=== PATIENT | female | born 1965 | race Caucasian/White ===

== ENCOUNTER 2020-05-26 20:59 | Inpatient (IN) | payer OTHER ==
[~2020-05-26] VITALS: Ht 170.2 cm; Wt 68.5 kg
--- NOTE | 2020-05-26 21:10 | NUR ---
BIB [facility] transported from [facility]. Patient was placed on 5150 hold for GD by police prior to arrival.
--- NOTE | 2020-05-26 21:23 | NUR ---
assistant professor surgical technology in room with patient to take x-rays.
--- NOTE | 2020-05-26 21:30 | NUR ---
Called for room, patient has been assigned room 137B in [facility].
[2020-05-26] MEDS ORDERED: ALPR0.255 PO (21:31)
[2020-05-26] MEDS ORDERED: HYDR-3972 PO (21:31)
--- NOTE | 2020-05-26 21:45 | NUR ---
Shalom beckfordyulia in ED - 05/26/20 at 2147 by CHEVY Patient is resting on bed, eyes closed. No acute distress is noted at this time.
--- NOTE | 2020-05-26 21:45 | NUR ---
Patient is resting on bed, rambling tangentially to herself.
--- NOTE | 2020-05-26 21:50 | NUR ---
Called [facility] to give report; pending call back.
--- NOTE | 2020-05-26 22:35 | NUR ---
Called [facility] to follow up on status to give report, EXECUTIVE ASSISTANT TO PRESIDENT states the nurses are busy and will call back.
--- NOTE | 2020-05-26 22:45 | NUR ---
KYLE Austin called back, report was given to her. Patient will be going to U room 137-B.
--- NOTE | 2020-05-26 23:20 | NUR ---
Pt. admitted to [facility] 137-B, under care of Dr. Penaloza. Belongs List completed, transported with original paperwork.
[2020-05-27] MEDS ORDERED: MAGNESIUM HYDROXIDE 30 ML LIQUID UDC PO PRN (00:15)
[2020-05-27] MEDS ORDERED: MAG HYDROX/AL HYDROX/SIMETH 30 ML LIQUID UDC PO PRN (00:15)
[2020-05-27] MEDS ORDERED: BLOOD SUGAR DIAGNOSTIC 1 EACH STRIP VI ONE (00:15)
[2020-05-27] MEDS: ACETAMINOPHEN 325 MG TABLET PO PRN ×2 (00:45→16:14)
[2020-05-27] MEDS: LORAZEPAM 0.5 MG TABLET PO PRN ×2 (00:46→00:49)
--- NOTE | 2020-05-27 03:12 | NUR ---
ADMITTED A FEMALE AT 23:15 ON 5150 HOLD FOR GRAVELLY DISABLED.DR. CIFUENTES IS THE PSYCHIATRIST AND DR KIRK IS THE SELF RISING FLOUR MIXER. PER HOLD SHE WAS SAID TO HAVE ATTEMPTED TO BREAK INTO 2 UNITS OF HER NEIGHBORS AND WAS INCOMPREHENSIBLE IN PRESENTATION. SHE ALSO ONCE FLOODED HER PLACE WHICH WENT INTO THE NEXT APARTMENT. ON FACE TO FACE ASSESSMENT SHE KEPT RAMBLING,PRESSURED SPEECH, UNABLE TO STAY ON ONE TOPIC AND HAVING TANGENTIAL THOUGHT.S. SHE SAID SHE WAS , HAD A BABY AT HOME, NEEDED TO PRAY AND TALKED NON STOP. BODY ASSESSMENT. SHE HAD ONE BRUISE ON INNER ARM OF RIGHT HAND. SHE REFUSED ALL MEDS EXCEPT TYLENOL. SHOWN TO HER ROOM BUT SAID SHE NEEDED A PRIVATE ONE BECAUSE EVERYONE HERE WAS COUGHING OR SNORING. HANDBOOK GIVEN. SAFETY MEASURES PUT IN PLACE . WILL CONTINUE TO MONITOR. verbal.[id number]
[2020-05-27 07:30] VITALS: BP 141/88
--- NOTE | 2020-05-27 09:06 | NUR ---
UR Note: Auth# [id number]. 3 days approved from 05-26-20 - 05-28-20 and clinical review due 05-28-20. Nigel/W Ernestine Everett ([phone]) with [facility].
--- NOTE | 2020-05-27 09:07 | NUR ---
Firearms Report: Gear Hobber Operator completed and submitted a [employer] firearms report for 5150 grave disability certification. A copy of report has been placed in patient chart.
[2020-05-27] MEDS: OLANZAPINE 5 MG TABLET PO SCH ×2 (09:15→16:20)
[2020-05-27] MEDS: DIVALPROEX 250 MG TABLET.DR PO SCH ×3 (09:15→16:20)
--- NOTE | 2020-05-27 10:01 | NUR ---
Initial Discharge Plan: Patient currently resides at [address] [place] [address]; ([phone]). Patient would want to return home upon discharge. This SW contacted patient's mother Carolina ([phone]) to gather collateral and discuss treatment plan. However, Carolina was unavailable. This SW will work with the MD, treatment team, and family to help coordinate proper discharge.
--- NOTE | 2020-05-27 10:26 | NUR ---
SW Family Contact: This SW contacted patient's mother Carolina ([phone]) to gather collateral and discuss treatment plan. However, Carolina was unavailable.
--- NOTE | 2020-05-27 13:01 | NUR ---
GPS: Nursing Notes: Thought Disorder: Patient is awake and responding to her name, impaired judgment, disorganized thoughts, flight of ideas, A/Ox2, loud and pressured speech, hyperverbal, non-stop talking, episodes of shouting at times, poor impulse control, gets easily irritable when redirected, refusing her psych medications, continue with racing thoughts, loud and angry affect, constantly redirected during shift, unable to formulate a viable plan for self care, compliant with her shower, but continue to be hyperverbal while showering, continue to monitor for safety, continue with treatment plan.
[2020-05-27 15:01] VITALS: BP 158/97
[2020-05-27 20:15] VITALS: BP 161/98
[2020-05-27] MEDS ORDERED: OLANZAPINE 10 MG VIAL IM ONE (21:00)
[2020-05-27] MEDS ORDERED: LORAZEPAM 2 MG/1 ML VIAL IV ONE (21:00)
--- NOTE | 2020-05-27 21:00 | NUR ---
GPS: Pt.is verbally agitated,hyperverbal,talking non-stop and non-sensical. Agitated when being re-directed. Refused to take PO med.for anxiety. Behavior is escalating and threatening to harm staff when approached and when being re-directed. Arguing and threatening her room mate at this time. Dr. Cortes made aware with orders. Safe environment provided.
--- NOTE | 2020-05-27 21:40 | NUR ---
GPS: Zyprexa 10mg + Ativan 1mg given IM and asiya.well. Continues re-direction provided by staff. Safe environment provided.
--- NOTE | 2020-05-28 01:03 | NUR ---
GPS: Asleep upon rounds. In no acute resp.distress noted. Safe environment provided.
[2020-05-28 07:30] VITALS: BP 141/90
[2020-05-28 08:22] LABS: BILIRUBIN,TOTAL 0.1 mg/dL (0.2-1.0); CREATININE 0.8 mg/dL (0.6-1.3); POTASSIUM 3.9 mmol/L (3.5-5.1)
--- NOTE | 2020-05-28 08:56 | NUR ---
SW Family Contact: This SW contacted patient's mother Carolina ([phone]) who lives in [place]. This SW attempted to contact mother multiple times. This SW left a voicemail that we are in different time zones.
[2020-05-28] MEDS: DIVALPROEX 250 MG TABLET.DR PO SCH ×3 (09:00→17:00)
[2020-05-28] MEDS: OLANZAPINE 5 MG TABLET PO SCH ×2 (09:00→17:00)
--- NOTE | 2020-05-28 09:21 | NUR ---
SW Family Contact: This SW received a call from patient's mother Carolina ([phone]) who stated that she is currently residing at [place] and is traveling. She reported that she is the DPOA but is unable to send documents because she is traveling. Carolina expressed upon discharge she would want patient back home and stated that a family member will pick her up upon discharge.
--- NOTE | 2020-05-28 09:36 | NUR ---
UR Note: Auth# [id number]. This SW contacted patients case management specialist from [employer] ([phone]) ext [phone] and left a voicemail in regards to patient's clinical review and requested days.
--- NOTE | 2020-05-28 10:25 | NUR ---
UR Note: Auth# [id number]. This SW contacted patients rn case management from [employer] ([phone]) ext [phone] who stated she will authorize until 06/02/2020Tuesday and will require clinical review on 06/02/2020.
--- NOTE | 2020-05-28 14:24 | NUR ---
Individual Therapy: family preservation caseworker met with patient for brief counseling and assessed for patient's presenting problem disorganized thought content. Patient appeared manic and labile. Patient was talking non stop. This SW was unable to re-direct patient. SW unable to conduct therapy at this time.
[2020-05-28] MEDS: ACETAMINOPHEN 325 MG TABLET PO PRN (15:18)
[2020-05-28 16:00] VITALS: BP 145/95
[2020-05-28] MEDS ORDERED: LORAZEPAM 2 MG/1 ML VIAL IM ONE (18:45)
[2020-05-28] MEDS ORDERED: OLANZAPINE 10 MG VIAL IM ONE (18:45)
[2020-05-28 20:11] VITALS: BP 125/77
[2020-05-28] MEDS: TEMAZEPAM 7.5 MG CAPSULE PO PRN (22:40)
[2020-05-29 07:30] VITALS: BP 132/86
--- NOTE | 2020-05-29 08:32 | NUR ---
Gps/Anthropological Linguist- Patient constantly talking, hyperverbal, difficulty redirecting patient,, rfusing routine oral meds, refusing prn ativan o.5 po. " will throw it up in you face" per pt.
[2020-05-29] MEDS: OLANZAPINE 5 MG TABLET PO SCH ×2 (09:00→16:41)
[2020-05-29] MEDS: DIVALPROEX 250 MG TABLET.DR PO SCH ×3 (09:00→16:41)
[2020-05-29 16:00] VITALS: BP 131/72
--- NOTE | 2020-05-29 16:17 | NUR ---
Gps/Natural Gas Inspector- Patient claimed she has her period right now, she is having menopause , no bleeding noted , patient claimed she washed her underwear with cold running water, and blood stain disappeared. Kept coming to the the Nurses station asking for more lori-pads. Remains to refused routine medications as prescribed by Psychiatrist, claimed she does not need i. reviewed meds. patient does not want to listen.
[2020-05-29] MEDS: ACETAMINOPHEN 325 MG TABLET PO PRN (19:09)
[2020-05-29 20:21] VITALS: BP 118/69
[2020-05-29] MEDS: TEMAZEPAM 7.5 MG CAPSULE PO PRN (21:17)
--- NOTE | 2020-05-30 01:45 | NUR ---
patient noted hyperverbal, flight of ideas. she required multiple redirection reassurance. Ativan 0.5 mg po prn was offered but she refused. will continue to monitor.
[2020-05-30 07:30] VITALS: BP 127/73
--- NOTE | 2020-05-30 08:21 | NUR ---
UR Note: This LUISA faxed to onsite case manager Jeanette (F:[phone]) and contacted her (P:[phone]) and stated that clinicals have been sent to onsite case manager Kae See ([phone]) ext [phone] who stated she will authorize until 06/02/2020Tuesday and will require clinical review on 06/02/2020. This SW left a detailed voicemail to Jeanette and stated who will be the appropriate assigned onsite case manager. Addendum: 05/30/20 at 0925 by LUISA CHAN [facility]# [id number]
[2020-05-30] MEDS: OLANZAPINE 5 MG TABLET PO SCH ×3 (08:26→20:23)
[2020-05-30] MEDS: DIVALPROEX 250 MG TABLET.DR PO SCH ×3 (08:26→17:00)
--- NOTE | 2020-05-30 09:27 | NUR ---
UR Note Contact: This SW received a call from Jeanette (F:[phone]) (P:[phone]) who stated that she is a pillowcase sewer for medical admission. emergency service worker informed that patient is the behavioral unit. She expressed to continue working with the behavioral pillowcase sewer and she will be closing this case.
[2020-05-30] MEDS: OLANZAPINE 10 MG VIAL IM PRN ×2 (14:31→20:36)
--- NOTE | 2020-05-30 15:40 | NUR ---
Court Hearing: Patient's court hearing was today and it was upheld for GD.
[2020-05-30 17:02] VITALS: BP 159/89
[2020-05-30 19:58] VITALS: BP 125/79
[2020-05-30] MEDS: TEMAZEPAM 7.5 MG CAPSULE PO PRN (23:28)
[2020-05-30] MEDS: ACETAMINOPHEN 325 MG TABLET PO PRN (23:31)
--- NOTE | 2020-05-31 06:31 | NUR ---
GPS: Pt.slept for only 2.30 last night despite receiving Restoril 7.5mg for insomnia. Remains loud,hyperverbal,pressured speech and needing frequent re-direction from staff. Poor insight to present situation. Safe environment provided. Will continue to monitor.
[2020-05-31 07:30] VITALS: BP 154/77
[2020-05-31] MEDS: DIVALPROEX 250 MG TABLET.DR PO SCH ×3 (08:40→17:00)
[2020-05-31] MEDS: OLANZAPINE 5 MG TABLET PO SCH ×2 (08:41→20:58)
[2020-05-31] MEDS: OLANZAPINE 10 MG VIAL IM PRN ×2 (08:41→21:03)
--- NOTE | 2020-05-31 08:53 | NUR ---
Gps/Dental Laboratory Worker- Reviewed medications, refused to take po. meds. calimed she is allecrgic to lots of meds. and will not take any, only "Xanax" per pt. Informed she will receive Zyprexa 10 mg IM if refused . Hyperverbal, loud difficulty redirecting patient, calling staff names.
[2020-05-31 15:18] VITALS: BP 120/81
--- NOTE | 2020-05-31 16:14 | NUR ---
Gps/Asset Protection Professional- Had been in and out of her room loud, hyperverbal, needing constant redirections, , speech incoherent and kept repeating her words , when tries to redirect patient , the more she talks louder.. Remains to refused po. meds.
[2020-05-31 20:00] VITALS: BP 102/54
[2020-05-31] MEDS: ACETAMINOPHEN 325 MG TABLET PO PRN (21:23)
[2020-05-31] MEDS: TEMAZEPAM 7.5 MG CAPSULE PO PRN (21:24)
--- NOTE | 2020-06-01 05:28 | NUR ---
PAtient continue to refused routine zyprexa p.o .Risk and benefits explained 3x.Still refused.Patient noted Delusional hyperverbal .Claimed shes on her period and wants pads.Upon assessment no blood noted. Patient on reise.Zypreza IM given. Patient continues to be hyperverbal ,loud ,has flight of ideas.Easily gets agitated.Offered ativan .Patient took and spit it.Wasted medication.
--- NOTE | 2020-06-01 06:35 | NUR ---
Patient slept 2.45 .Remains hyperverbal and Loud.Continues to have flight of ideas. Patient noted pacing back and forth in the hallway this morning.Constant redirection provided by the staff.Continue safety measures.
[2020-06-01 07:30] VITALS: BP 133/80
[2020-06-01] MEDS: DIVALPROEX 250 MG TABLET.DR PO SCH ×3 (08:44→17:00)
[2020-06-01] MEDS: OLANZAPINE 5 MG TABLET PO SCH ×2 (08:44→20:03)
[2020-06-01] MEDS: OLANZAPINE 10 MG VIAL IM PRN (08:45)
--- NOTE | 2020-06-01 08:51 | NUR ---
Gps/Rn Perioperative- Came out rushing to Nurses station, claimed fire alarm going off, someone is smoking , in fact it was the bed alarm. Talking loud, hyperverbal, staff difficulty redirecting patient, kept coming to the Nurses station uttering louddly ., constantly needing redirections.
[2020-06-01 09:13] VITALS: BP 133/80
--- NOTE | 2020-06-01 11:30 | NUR ---
Gps/Refueling Rampman- Had shower, assisted by FACTORY WORKER, yelling and screaming episodes coming from the shower room, patient was uncooperative with the FACTORY WORKER, , yelling at the staff, difficulty redirecting patient.
[2020-06-01] MEDS: ACETAMINOPHEN 325 MG TABLET PO PRN (15:24)
--- NOTE | 2020-06-01 15:24 | NUR ---
Gps/Director Of Product Management- Complained of headache, requesting tylenol 650 mg. po, , claimed she thinks she is allergic to it, but she takes it anytime , because it helps her H/A. Constant redirections given to patient.
[2020-06-01 16:00] VITALS: BP 100/57
[2020-06-01 20:00] VITALS: BP 129/75
[2020-06-01] MEDS: TEMAZEPAM 15 MG CAPSULE PO PRN (22:10)
--- NOTE | 2020-06-02 06:31 | NUR ---
GPS: Pt.slept for 5.15 last night. Denies pain. Re-directed and re-assured prn. Safe environment provided.
[2020-06-02 07:30] VITALS: BP 131/71
[2020-06-02] MEDS: DIVALPROEX 250 MG TABLET.DR PO SCH ×3 (08:51→16:28)
[2020-06-02] MEDS: OLANZAPINE 5 MG TABLET PO SCH (08:51)
--- NOTE | 2020-06-02 09:16 | NUR ---
UR Note: Auth# [id number]. This SW contacted patients case planner from [employer] ([phone]) ext [phone] and left a voicemail for patient's clinical review today 06/02 requesting authorization.
--- NOTE | 2020-06-02 12:53 | NUR ---
UR Note: Auth# [id number]. This SW contacted patients adult protective caseworker from [employer] ([phone]) ext [phone] and authorized until 06/04. Will require a review on 06/04.
[2020-06-02] MEDS: ACETAMINOPHEN 325 MG TABLET PO PRN ×2 (14:40→22:45)
[2020-06-02 15:02] VITALS: BP 116/70
--- NOTE | 2020-06-02 15:19 | NUR ---
SW Family Contact: This SW received a call from patient's mother Carolina ([phone]) who left a voicemail stating that "someone left a text message". This SW expressed that the hospital has not left a text message.
--- NOTE | 2020-06-02 15:32 | NUR ---
Individual Therapy: home support worker met with patient for brief counseling and assessed for patient's presenting problem disorganized thought content. Patient appeared manic and labile. Patient was talking non stop. Patient was unable to focus with this SW. Patient unable to have a proper conversation at this time due to manic mood.
[2020-06-02] MEDS: BENZTROPINE MESYLATE 0.5 MG TABLET PO SCH (16:51)
[2020-06-02 20:16] VITALS: BP 154/76
[2020-06-02] MEDS: HALOPERIDOL 5 MG TABLET PO SCH (21:00)
[2020-06-02] MEDS: HALOPERIDOL LACTATE 5 MG/1 ML VIAL IM PRN (21:03)
--- NOTE | 2020-06-02 22:00 | NUR ---
RECEIVED PATIENT IN THE HALLWAY. SHE IS NOTED A/O X 3 ABLE TO VERBALIZED FEELINGS. SHE PRESENTS HYPERVERBAL, WITH FLIGHT OF IDEAS. AFFECT IS BRIGHT, MOOD IS LABILE. PATIENT. PATIENT IS HARD TO REDIRECT. REFUSED TO TAKE HALDOL 12.5MG PO QHS. PATIENT IS REISE. MULTIPLE REDIRECTION GIVEN YET REFUSED. HALDOL 7.5MG IM GIVEN FOR REFUSAL OF PO HALDOL. V/S STABLE. PATIENT GIVEN SNACKS AND PO FLUID. PATIENT IS REASSURED FOR HER SAFETY. SAFETY AND FALL PRECAUTION IN PLACE. WILL CONTINUE TO MONITOR.
[2020-06-02] MEDS: TEMAZEPAM 15 MG CAPSULE PO PRN (22:09)
--- NOTE | 2020-06-02 22:10 | NUR ---
PATIENT REQUESTED TEMAZEPAM TO HELP HER SLEEP. TEMAZEPAM 15MG PO PRN WAS GIVEN. WILL CONTINUE TO MONITOR.
[2020-06-03 07:30] VITALS: BP 133/77
[2020-06-03] MEDS: DIVALPROEX 250 MG TABLET.DR PO SCH ×3 (08:48→17:00)
[2020-06-03] MEDS: BENZTROPINE MESYLATE 0.5 MG TABLET PO SCH ×2 (08:48→17:00)
[2020-06-03] MEDS: ACETAMINOPHEN 325 MG TABLET PO PRN (11:45)
--- NOTE | 2020-06-03 14:11 | NUR ---
SW Coordination of Care: This SW contacted parks recreation coordinator Manjula who scheduled an appointment with (Rivet Heater) Dr. Simms located at [address] [place] [address], [facility]; ([phone]) on August 06 at 10AM.
[2020-06-03] MEDS: LORAZEPAM 0.5 MG TABLET PO PRN (15:15)
[2020-06-03 16:00] VITALS: BP 158/82
[2020-06-03 20:19] VITALS: BP 134/73
[2020-06-03] MEDS: HALOPERIDOL 5 MG TABLET PO SCH (20:56)
[2020-06-03] MEDS: HALOPERIDOL LACTATE 5 MG/1 ML VIAL IM PRN (21:00)
[2020-06-03] MEDS ORDERED: HALOPERIDOL LACTATE 5 MG/1 ML VIAL IM PRN (21:45)
[2020-06-03] MEDS: TEMAZEPAM 15 MG CAPSULE PO PRN (22:24)
--- NOTE | 2020-06-04 07:01 | NUR ---
PATIENT SLEPT FOR APPROX 6.15 HRS THROUGH THE NIGHT. WILL CONTINUE TO MONITOR.
[2020-06-04 07:07] LABS: BASOPHILS % (AUTO) 0.3 % (0.0-2.0); EOSINOPHILS # (AUTO) 0.1 K/uL (0.0-0.7); EOSINOPHILS % (AUTO) 0.9 % (0.0-7.0); HEMATOCRIT 29.3 % (31.2-41.9); LYMPHOCYTES # (AUTO) 3.1 K/uL (20.0-40.0); LYMPHOCYTES % (AUTO) 40.9 % (20.5-51.5); MEAN CORPUSCULAR HEMOGLOBIN 33.7 uug (24.7-32.8); MEAN CORPUSCULAR HGB CONC 34 g/dL (32.3-35.6); MEAN CORPUSCULAR VOLUME 99.2 fL (75.5-95.3); MONOCYTES # (AUTO) 0.7 K/uL (2.0-10.0); MONOCYTES % (AUTO) 9.4 % (0.0-11.0); NEUTROPHILS # (AUTO) 3.7 K/uL (1.8-8.9); NEUTROPHILS % (AUTO) 48.5 % (38.5-71.5); PLATELET COUNT (AUTO) 318 K/uL (179-408); RED BLOOD CELL COUNT(AUTO) 2.95 MIL/uL (3.63-4.92); WHITE BLOOD COUNT (AUTO) 7.6 K/uL (3.8-11.8)
[2020-06-04 07:12] LABS: CREATININE 0.8 mg/dL (0.6-1.3); POTASSIUM 3.8 mmol/L (3.5-5.1)
[2020-06-04 07:30] VITALS: BP 117/74
--- NOTE | 2020-06-04 07:30 | NUR ---
Received patient in hallway. Patient is hyperverbal and can be intrusive. Patient refused all medications. No sign of distress noted. Pt. Denied any SI/DOBSON. Safety precautions are in place. Will continue to monitor.
[2020-06-04] MEDS: BENZTROPINE MESYLATE 0.5 MG TABLET PO SCH ×3 (09:00→16:15)
[2020-06-04] MEDS: DIVALPROEX 250 MG TABLET.DR PO SCH ×4 (09:00→16:15)
--- NOTE | 2020-06-04 09:17 | NUR ---
UR Note: Auth# [id number]. This SW contacted patients cyanide case hardener from [employer] ([phone]) ext [phone] and left a clinical review for authorization.
[2020-06-04] MEDS: HALOPERIDOL 5 MG TABLET PO SCH ×2 (15:45→21:00)
[2020-06-04] MEDS: HALOPERIDOL LACTATE 5 MG/1 ML VIAL IM PRN ×2 (15:58→20:54)
[2020-06-04 16:00] VITALS: BP 125/70
--- NOTE | 2020-06-04 16:05 | NUR ---
UR Note: Auth# [id number]. This SW contacted patients case operator from [employer] ([phone]) ext [phone] to follow up regarding authorization, left a voicemail.
[2020-06-04 20:15] VITALS: BP 120/78
[2020-06-04] MEDS: TEMAZEPAM 15 MG CAPSULE PO PRN (22:37)
[2020-06-05 07:30] VITALS: BP 147/75
[2020-06-05] MEDS: HALOPERIDOL LACTATE 5 MG/1 ML VIAL IM PRN ×2 (08:20→21:36)
[2020-06-05] MEDS: BENZTROPINE MESYLATE 0.5 MG TABLET PO SCH ×2 (09:00→17:00)
[2020-06-05] MEDS: HALOPERIDOL 5 MG TABLET PO SCH ×2 (09:00→21:00)
[2020-06-05] MEDS: DIVALPROEX 250 MG TABLET.DR PO SCH ×3 (09:00→17:00)
--- NOTE | 2020-06-05 09:03 | NUR ---
UR Note: Auth# [id number]. This SW [facility] ([phone]) ext [phone] and left a voicemail for her to contact this SW in regards to authorization.
--- NOTE | 2020-06-05 09:18 | NUR ---
Individual Therapy: horticulture worker met with patient for brief counseling and assessed for patient's presenting problem disorganized thought content. Patient continues to present as manic. Patient is hyperverbal and tangential. Patient has been talking non stop and unable to focus. This SW unable to conduct therapy at this time.
--- NOTE | 2020-06-05 11:51 | NUR ---
UR Note: Auth# [id number]. This SW [facility] ([phone]) ext [phone] who authorization until Tuesday06/09/20.
[2020-06-05] MEDS: ACETAMINOPHEN 325 MG TABLET PO PRN (16:11)
[2020-06-05 16:31] VITALS: BP 139/83
--- NOTE | 2020-06-05 17:47 | NUR ---
received patient calm cooperative, patient refused all her oral medication, gave IM medication per erasto protocol, patient hyperverbal, labbile, took shower, no sign of any distress
[2020-06-05 20:18] VITALS: BP 127/82
[2020-06-05] MEDS: TEMAZEPAM 15 MG CAPSULE PO PRN (22:10)
[2020-06-06 07:30] VITALS: BP 115/70
[2020-06-06] MEDS: HALOPERIDOL 5 MG TABLET PO SCH ×2 (08:15→20:33)
[2020-06-06] MEDS: BENZTROPINE MESYLATE 0.5 MG TABLET PO SCH ×2 (08:15→17:00)
[2020-06-06] MEDS: HALOPERIDOL LACTATE 5 MG/1 ML VIAL IM PRN (08:15)
[2020-06-06] MEDS: DIVALPROEX 250 MG TABLET.DR PO SCH ×3 (08:15→17:00)
[2020-06-06] MEDS ORDERED: POLYVINYL ALCOHOL OPHT DROPS 15 ML BOTTLE EACHEYE PRN (09:15)
--- NOTE | 2020-06-06 14:59 | NUR ---
Individual Therapy: vineyard worker met with patient for brief counseling and assessed for patient's presenting problem disorganized thought content. Patient continues to present as manic. Patient was talking non stop and was unable to focus. Patient kept stating to bring "I have a headache and do not want to participate". Patient wanted to stay in her room and not engage in any conversation. SW unable to conduct therapy at this time.
--- NOTE | 2020-06-06 15:50 | NUR ---
LUISA Coordination of Care: Patient will be referred for intake evaluation with a (Psychiatrist) Dr. Kamlesh Christie located at [address] [place] [address], [address], [place] [address]; ([phone]) on June 23 at 1PM via TELEHEALTH and was scheduled by Aster berry picker.
[2020-06-06 16:00] VITALS: BP 136/80
[2020-06-06] MEDS: ACETAMINOPHEN 325 MG TABLET PO PRN (18:22)
[2020-06-06 20:34] VITALS: BP 133/73
[2020-06-06] MEDS: TEMAZEPAM 15 MG CAPSULE PO PRN (21:31)
--- NOTE | 2020-06-07 05:59 | NUR ---
Pt slept a total of 6.30 hours last night. Denies pain or SOB. Pt refused PO Haldol and was given Haldol IM per order. Bed is locked and in lowest position. Denies SI or HI. Denies AH or VH. Pt is hyperverbal when communicating with staff and is also tangental and delusional. No other issues or concerns at this time, will endorse to day shift.
[2020-06-07 07:30] VITALS: BP 124/73
[2020-06-07] MEDS: BENZTROPINE MESYLATE 0.5 MG TABLET PO SCH ×2 (08:21→16:25)
[2020-06-07] MEDS: DIVALPROEX 250 MG TABLET.DR PO SCH ×3 (08:21→16:25)
[2020-06-07] MEDS: HALOPERIDOL 5 MG TABLET PO SCH ×2 (08:21→21:00)
[2020-06-07] MEDS: HALOPERIDOL LACTATE 5 MG/1 ML VIAL IM PRN ×2 (08:29→21:32)
[2020-06-07 16:00] VITALS: BP 135/76
[2020-06-07] MEDS: ACETAMINOPHEN 325 MG TABLET PO PRN (16:25)
[2020-06-07 19:55] VITALS: BP 133/74
[2020-06-07] MEDS: TEMAZEPAM 15 MG CAPSULE PO PRN (21:05)
--- NOTE | 2020-06-08 05:41 | NUR ---
Pt refused scheduled HS PO Haldol, stating that the pills make her "feel sick." Pt was agreeable to taking the IM as per the Riese order. Haldol 10mg IM administered to (L) deltoid, Pt tolerated well. Pt is anxious, hyperverbal, and focused on perceived somatic symptoms from taking PO medications. Pt educated regarding medication side effects, but Pt is easily distracted and unreceptive at this time. Pt denies SI/HI, verbally contracts for safety. Denied pain, VS WDL.
[2020-06-08 07:30] VITALS: BP 128/60
[2020-06-08] MEDS: DIVALPROEX 250 MG TABLET.DR PO SCH ×3 (08:33→16:23)
[2020-06-08] MEDS: HALOPERIDOL 5 MG TABLET PO SCH ×2 (08:33→21:31)
[2020-06-08] MEDS: BENZTROPINE MESYLATE 0.5 MG TABLET PO SCH ×2 (08:33→16:23)
[2020-06-08] MEDS: HALOPERIDOL LACTATE 5 MG/1 ML VIAL IM PRN (08:34)
[2020-06-08 15:38] VITALS: BP 128/84
[2020-06-08] MEDS: ACETAMINOPHEN 325 MG TABLET PO PRN (18:48)
[2020-06-08 20:05] VITALS: BP 139/70
--- NOTE | 2020-06-08 21:30 | NUR ---
RECEIVED PATIENT IN HER ROOM. SITTING IN HER BED. SHE IS NOTED CALM AND PLEASANT UPON APPROACHED. SHE IS ABLE TO VERBALIZED FEELINGS, NOTED LESS HYPERVERBAL, LESS OPINIONATED. SHE IS NOTED REDIRECTABLE. MOOD IS EUPHORIC, AFFECT IS BRIGHT. PATIENT WAS COMPLIANT WITH HALDOL 12.5MG PO QHS. MEDICATION WAS CRUSHED AND MIXED WITH CRANBERRY JUICE AND GIVEN TO PATIENT WHO AGREED TO TAKE HALDOL THIS WAY AND LONG IS NOT A "PILL". PATIENT IS REASSURED FOR HER SAFETY. SAFETY AND FALL PRECAUTION IN PLACE. PT DENIED SI/HI/VA/AH. HE IS ABLE TO CFS. V/S STABLE AT THIS TIME. PATIENT GIVEN SNACKS AND PO FLUIDS. WILL CONTINUE TO MONITOR.
[2020-06-08] MEDS: TEMAZEPAM 15 MG CAPSULE PO PRN (22:52)
[2020-06-09 07:30] VITALS: BP 101/58
[2020-06-09] MEDS: BENZTROPINE MESYLATE 0.5 MG TABLET PO SCH ×2 (08:47→16:17)
[2020-06-09] MEDS: DIVALPROEX 250 MG TABLET.DR PO SCH ×2 (08:47→12:18)
[2020-06-09] MEDS: HALOPERIDOL 5 MG TABLET PO SCH (08:50)
[2020-06-09] MEDS: HALOPERIDOL LACTATE 5 MG/1 ML VIAL IM PRN (08:57)
[2020-06-09] MEDS: ACETAMINOPHEN 325 MG TABLET PO PRN ×2 (08:57→23:29)
--- NOTE | 2020-06-09 09:58 | NUR ---
UR Note: Auth# [id number]. This SW contacted patient's mental health case manager from [facility] Kae See ([phone]) ext [phone] for clinical review and requested authorization. This SW left a clinical voicemail.
--- NOTE | 2020-06-09 12:05 | NUR ---
UR Note: Auth# [id number]. This SW received a phone call from patient's case checker from [employer] ([phone]) ext [phone] who stated that she will be sending it in for peer to peer review and will contact this SW to schedule with the doctor.
--- NOTE | 2020-06-09 14:53 | NUR ---
UR Note: Auth# [id number]. This SW received a phone call from patient's shoe caser from [employer] ([phone]) ext [phone]. This SW received a call from coordinator Alka ([phone]) who scheduled peer to peer with Dr. Sinclair ([phone]) on June 10 at 9AM. This SW notified Dr. Rockwell.
[2020-06-09 15:06] VITALS: BP 137/72
--- NOTE | 2020-06-09 15:32 | NUR ---
Individual Therapy: social worker palliative care met with patient for brief counseling and assessed for patient's presenting problem disorganized thought content. Patient appears less manic. Patient appeared calm and cooperative, however, she stated that she is feeling tired and wants to rest. Patient did not want to conduct therapy at this time.
[2020-06-09] MEDS: VALPROIC ACID 250 MG CAPSULE PO SCH (16:17)
[2020-06-09 20:13] VITALS: BP 137/73
[2020-06-09] MEDS: HALOPERIDOL LACTATE 10 MG/5 ML ORAL SOLUTION UDC PO SCH (20:33)
[2020-06-09] MEDS: TEMAZEPAM 15 MG CAPSULE PO PRN (22:10)
[2020-06-09] MEDS: LORAZEPAM 0.5 MG TABLET PO PRN (23:29)
[2020-06-10 07:30] VITALS: BP 109/67
[2020-06-10] MEDS: HALOPERIDOL LACTATE 10 MG/5 ML ORAL SOLUTION UDC PO SCH ×2 (08:35→20:17)
[2020-06-10] MEDS: BENZTROPINE MESYLATE 0.5 MG TABLET PO SCH ×2 (08:39→17:00)
[2020-06-10] MEDS: VALPROIC ACID 250 MG CAPSULE PO SCH ×3 (08:39→17:00)
--- NOTE | 2020-06-10 09:14 | NUR ---
SW Family Contact: This SW contacted patient's mother Carolina ([phone]) to discuss discharge plan, however, she was unavailable and this SW left a voicemail.
--- NOTE | 2020-06-10 09:43 | NUR ---
SW Cousin Contact: This SW spoke with patient's cousin Natalie ([phone]) and discussed discharge plan, she stated upon dc she will pick her up.
[2020-06-10] MEDS: ACETAMINOPHEN 325 MG TABLET PO PRN (13:10)
--- NOTE | 2020-06-10 13:11 | NUR ---
Individual Therapy: fruit harvest worker met with patient for brief counseling and assessed for patient's presenting problem disorganized thought content. Patient appeared less manic and labile. Patient appeared calm and cooperative. She was was able to communicate with this SW. She stated she is "feeling better and is looking forward to going back home. SW actively listened and provided emotional support.
--- NOTE | 2020-06-10 13:23 | NUR ---
UR Note: Auth# [id number]. This SW received a phone call from patient's director of casework from [employer] ([phone]) ext [phone] who stated that peer to peer was completed and that patient is authorized until June 12 and will require a clinical review on that day.
[2020-06-10 15:24] VITALS: BP_SYST 102; BP_SYST 106; BP_DIAS 53; BP_DIAS 67
--- NOTE | 2020-06-10 18:31 | NUR ---
Pt continues to refused all PO meds in tabs/capsules except Tylenol PRN, but would take meds in liquid form
[2020-06-10 20:00] VITALS: BP 110/64
[2020-06-10] MEDS: TEMAZEPAM 15 MG CAPSULE PO PRN (22:03)
[2020-06-11 07:30] VITALS: BP 114/76
--- NOTE | 2020-06-11 07:30 | NUR ---
Received report from KIKI Pace. All questions, comments, and concerns were addressed. Received patient resting quietly in her assigned bed, bed is in low and locked position.
[2020-06-11] MEDS: HALOPERIDOL LACTATE 10 MG/5 ML ORAL SOLUTION UDC PO SCH ×2 (08:16→20:28)
[2020-06-11] MEDS: BENZTROPINE MESYLATE 0.5 MG TABLET PO SCH ×2 (08:23→17:00)
[2020-06-11] MEDS: VALPROIC ACID 250 MG CAPSULE PO SCH ×3 (08:23→17:00)
--- NOTE | 2020-06-11 10:10 | NUR ---
patient is alert and oriented x3. she withdrawn and isolative to her room, but is cooperative and redirectable. she has epsiodes of impulsivity where she becomes easily angry and agitated but is easily redirectable. patient is adherent with Haldol PO only, no adverse reaction noted. provided with education about importance of taking all medication as prescribed, but continues to refuse other PO medications. patient denies SI/HI, denies AH/VH. patient is able to tolerate food and fluids. able to ambulate independently and perform self care and ADL's. patient is encouraged to participate in the unit therapeutic milieu and groups. educated about impulse control.
--- NOTE | 2020-06-11 11:46 | NUR ---
SW Cousin Contact: This SW spoke with patient's cousin Natalie ([phone]) who stated that she will tack picker patient on 06/12 between 4PM-7PM.
--- NOTE | 2020-06-11 14:00 | NUR ---
Individual Therapy: petroleum refinery worker met with patient for brief counseling and assessed for patient's presenting problem disorganized thought content. Patient appeared less manic and labile. She was less tangential and hyperverbal. Patient was able to understand and listen to this SW. She expressed she is "happy" to be going back home. SW actively listened and provided support.
[2020-06-11] MEDS: ACETAMINOPHEN 325 MG TABLET PO PRN (14:31)
[2020-06-11 16:32] VITALS: BP 135/79
[2020-06-11 20:28] VITALS: BP 130/67
[2020-06-12] MEDS: TEMAZEPAM 15 MG CAPSULE PO PRN (02:07)
[2020-06-12 07:30] VITALS: BP 110/64
--- NOTE | 2020-06-12 08:02 | NUR ---
SW Discharge Note: Patient will be discharged home located at [address] [facility] [address], [place] [address] ([phone]). Patients cousin Natalie ([phone]) will orange picker machine operator patient between 4PM-7PM. Patients mother Carolina ([phone]) is involved in patients care. Patient is alert and oriented x3 and is happy to be going back home. Patient denies any suicidal or homicidal ideation. Patient is aware and agreeable with discharge plans. Patient denies visual/auditory hallucination. Patient will follow up with (Boiler Plant Worker) Dr. Simms located at [address] [place] [address], [facility] ([phone]) on August 06 at 10AM and will manage and provide psychotropic medications. Primary doctor will refer patient to a psychiatrist. Patient will be referred for intake evaluation with a (Psychiatrist) Dr. Kamlesh Christie located at [address] [facility], [address], [place] [address]; ([phone]) on June 23 at 1PM via TELEHEALTH. Patient was provided with mental health resources: [facility] ;([phone]), [facility]; ([phone]), [facility]; ([phone]), National Suicide Prevention Lifeline; ( ). Patient presented with euthymic mood and congruent affect.
[2020-06-12] MEDS: BENZTROPINE MESYLATE 0.5 MG TABLET PO SCH ×2 (09:00→16:56)
[2020-06-12] MEDS: VALPROIC ACID 250 MG CAPSULE PO SCH ×3 (09:00→16:56)
[2020-06-12] MEDS: HALOPERIDOL LACTATE 10 MG/5 ML ORAL SOLUTION UDC PO SCH (09:08)
--- NOTE | 2020-06-12 09:19 | NUR ---
UR Note: Auth# [id number]. This SW [facility] ([phone]) ext [phone] and left a clinical voicemail of patient's discharge plan and medication list.
--- NOTE | 2020-06-12 14:56 | NUR ---
Gps/Mechanical Striper- Discharge planning in progress, patient was well informed. Patient's cousin Natalie will be providing transportation , will supervisor picking crew patient between 4-7 pm as arranged by Social Workers. arrangement was made for Doctors follow up denies S.I./No H.I. .
[2020-06-12] MEDS: ACETAMINOPHEN 325 MG TABLET PO PRN (15:51)
--- NOTE | 2020-06-12 15:57 | NUR ---
Gps/Chemical Laboratory Technician- Patient anxious about her discharge, want staff to call her cousin Natalie, was called and left call back number, patient was informed, reassured.
[2020-06-12 16:00] VITALS: BP 111/65
--- NOTE | 2020-06-12 17:45 | NUR ---
Gps/pepe Estrada (cousin) returned call, and able to talked to charge Nurse Brian . Given instructions when she gets here , would be better for her to park at the back of the Hosp. instead ,
--- NOTE | 2020-06-12 18:33 | NUR ---
Gps/Bad Work Gatherer- Patient has all the rings with her , all belongings returned back to patient,, including her home meds. and was able to singed belongings paper,as well as the discharge instructions, reviewed medications/ prescriptions , emphasized follow up with her primary Medical Doctor as well as her Psychiatrist as arranged by Virtual Assistant, patient verbalized understanding .
--- NOTE | 2020-06-12 19:45 | NUR ---
GPS: Pt.was discharged to family member "Natalie" in stable condition via her own personal transportation with all her personal belongings. No new skin issues identified. Discharge instructions given to pt and "Natalie" and verbalized understanding.
== END 2020-06-12 19:48 | disposition home or self-care (01) | DRG 885 ==
LOC: ER 21:04 → GPS 22:56
PROVIDERS: ADMIT Psychiatry & Neurology Psychiatry; ATTEND Family Medicine
DX: F31.2 Bipolar disorder, current episode manic severe with psychotic features (principal); E44.1 Mild protein-calorie malnutrition; F23 Brief psychotic disorder; Z94.7 Corneal transplant status; Z73.6 Limitation of activities due to disability; R73.9 Hyperglycemia, unspecified; E88.09 Other disorders of plasma-protein metabolism, not elsewhere classified; Z68.23 Body mass index [BMI] 23.0-23.9, adult
CPT/HCPCS: 36415; 71045; 85025; 93005; A4663; J1630; J2060; J2358; J3490

== ENCOUNTER 2020-08-28 17:21 | Inpatient (IN) | payer OTHER ==
[~2020-08-28] VITALS: Ht 162.6 cm; Wt 71.7 kg
[~2020-08-28 17:21] MED LIST: HYDR-3972 PO
[2020-08-28] MEDS ORDERED: ALPR0.5T8 PO (17:37)
[2020-08-28] MEDS ORDERED: TEMA15CA5 PO (17:42)
--- NOTE | 2020-08-28 17:50 | NUR ---
Per pt is medically clear and may be transfered to MHU.
--- NOTE | 2020-08-28 17:56 | NUR ---
Attempted to give report to M[facility], nurse Krishna refused to take report.
--- NOTE | 2020-08-28 18:05 | NUR ---
Spoke with Alyssa Hendrickson who stated there is no issue with pt's 5150 hold and pt may be trans to U.
--- NOTE | 2020-08-28 18:10 | NUR ---
SBAR report given to charge nurse in MHU.
--- NOTE | 2020-08-28 18:30 | NUR ---
Pt trans to MHU, NAD noted.
--- NOTE | 2020-08-28 18:45 | NUR ---
Received patient from ED via wheelchair. Patient not in acute distress. Vital signs taken, Vital signs WNL. Patient hyperverbal. Will endorse to incoming shift for admission.
[2020-08-28] MEDS ORDERED: MAG HYDROX/AL HYDROX/SIMETH 30 ML LIQUID UDC PO PRN (20:00)
[2020-08-28 20:25] VITALS: BP 121/67
[2020-08-28] MEDS: TEMAZEPAM 7.5 MG CAPSULE PO PRN (21:50)
[2020-08-29] MEDS: ACETAMINOPHEN 325 MG TABLET PO PRN ×2 (09:34→16:26)
[2020-08-29 10:12] VITALS: BP 114/62
--- NOTE | 2020-08-29 11:15 | NUR ---
LUISA Initial Discharge Plan: Patient currently resides at [address] [place] [address] ([phone]). Patient will return home upon discharge. Patient's mother Carolina ([phone]) is involved in the patient care however unable to reach at this time. LUISA will continue to work with patient, family, and MD to ensure a safe and proper discharge plan.
--- NOTE | 2020-08-29 11:15 | NUR ---
LUISA Family Contact: LUISA contacted Patient's mother Carolina ([phone]) who is involved in the patient care however unable to reach at this time. LUISA left a voicemail to contact this personal lines underwriter back to discuss treatment and discharge plan.
--- NOTE | 2020-08-29 11:17 | NUR ---
Firearms Report: [employer] Agent completed and submitted a [employer] firearms report for 5150 grave disability certifications. A copy of report has been placed in patient chart.
--- NOTE | 2020-08-29 11:37 | NUR ---
UR NOTE: Per GG intake: Auth#[id number] obtained from Isaura Dunbar 2 days approved with review due on 08/29/2020. Contact Harish.A.S.TRussel with clinicals [phone]. LUISA called ([phone]) for concurrent review and spoke with [place] who informed the Assigned tax audit manager is Kae ([phone]). LUISA contacted Kae PRICE regarding concurrent review and left a voicemail informed patient just admitted last night and no records up yet to review. Will follow up Tuesday.
--- NOTE | 2020-08-29 12:19 | NUR ---
UR NOTE: Auth#[id number] SW received a call from Assigned manager community development is Kae ([phone]. [phone]) who stated that patient is authorized until Tuesday with review due Tuesday09/01/20.
--- NOTE | 2020-08-29 14:52 | NUR ---
LUISA Family Contact: LUISA spoke with patients cousin Natalie ([phone]) who stated that she is leaving town until the end of September and will not be able to pick up driver the patient upon discharge to provide transportation. LUISA discussed if Natalie would be able to pay for a transportation and she stated she cannot.
--- NOTE | 2020-08-29 14:59 | NUR ---
LUISA Family Contact: SW received a voicemail from patient's mother Carolina ([phone]). SW called back however phone does not ring and goes straight to voicemail. SW left another voicemail.
--- NOTE | 2020-08-29 18:25 | NUR ---
Patient in room, AOx4. No signs of acute distress. Patient ambulatory. Patient complained of headache, Tylenol PRN given. Patient tolerated well. Patient has minimal interaction with staff, only to make needs known. Safety measures provided. Needs met. Will endorse to incoming shift for continuity of care.
[2020-08-29 20:13] VITALS: BP 124/91
[2020-08-29] MEDS: TEMAZEPAM 7.5 MG CAPSULE PO PRN (22:14)
[2020-08-29] MEDS: HALOPERIDOL LACTATE 10 MG/5 ML ORAL SOLUTION UDC PO SCH (23:31)
[2020-08-30] MEDS: TEMAZEPAM 7.5 MG CAPSULE PO PRN ×2 (02:28→21:03)
--- NOTE | 2020-08-30 06:29 | NUR ---
Received patient in the woods last night, virtually non stop talking. Speech was tangental. This patient was up most of the night and only slept 2.00 hours in total. Soldering Inspector tried to set limits but the patient continued to ignore the staff and had proceeded with multiple requests. Continuing to monitor this patient for compliance , safety and labile behavior. Delusions noted.
[2020-08-30 07:55] VITALS: BP 113/70
[2020-08-30] MEDS: HALOPERIDOL LACTATE 10 MG/5 ML ORAL SOLUTION UDC PO SCH ×3 (09:00→17:00)
[2020-08-30] MEDS: CLONAZEPAM 0.5 MG TABLET PO SCH (10:52)
[2020-08-30 16:23] VITALS: BP 132/78
[2020-08-30 20:07] VITALS: BP 131/88
[2020-08-30] MEDS: ACETAMINOPHEN 325 MG TABLET PO PRN (20:41)
[2020-08-31] MEDS: TEMAZEPAM 7.5 MG CAPSULE PO PRN ×2 (00:40→20:07)
--- NOTE | 2020-08-31 06:51 | NUR ---
There are no changes from the previous night. Patient continued to be hyperverbal and would not be compliant with her psychiatric medications. Sleep hours were only 2.00 .
[2020-08-31 07:30] VITALS: BP 119/79
[2020-08-31] MEDS: CLONAZEPAM 0.5 MG TABLET PO SCH (08:17)
[2020-08-31] MEDS: HALOPERIDOL LACTATE 10 MG/5 ML ORAL SOLUTION UDC PO SCH ×3 (08:19→16:50)
[2020-08-31] MEDS: ACETAMINOPHEN 325 MG TABLET PO PRN ×2 (11:50→23:25)
[2020-08-31 15:36] VITALS: BP 118/68
--- NOTE | 2020-08-31 18:54 | NUR ---
patient had been refused all Haldol today , Dr. Pulliam made aware.
[2020-08-31 20:07] VITALS: BP 119/74
[2020-09-01] MEDS: TEMAZEPAM 7.5 MG CAPSULE PO PRN ×2 (01:20→22:33)
[2020-09-01 07:30] VITALS: BP 119/74
[2020-09-01] MEDS: HALOPERIDOL LACTATE 10 MG/5 ML ORAL SOLUTION UDC PO SCH ×3 (08:27→16:19)
[2020-09-01] MEDS: ACETAMINOPHEN 325 MG TABLET PO PRN (08:28)
--- NOTE | 2020-09-01 10:54 | NUR ---
UR NOTE: Auth#[id number] SW received a call from Assigned branch general manager is Kae ([phone]) who left a detailed clinical review and requested days.
--- NOTE | 2020-09-01 15:05 | NUR ---
LUISA Individual Therapy: telephone sex worker met with patient for brief counseling to help address patient;s presenting problem disorganized thought content. Pt appears manic and labile. Pt very tangential and hyperverbal. Pt unable to have a proper conversation. Pt requires multiple re-direction. SW unable to conduct therapy at this time.
[2020-09-01 15:08] VITALS: BP 108/77
[2020-09-01 20:05] VITALS: BP 119/76
[2020-09-01] MEDS: POLYVINYL ALCOHOL OPHT DROPS 15 ML BOTTLE LEFTEYE PRN (21:12)
[2020-09-02] MEDS: POLYVINYL ALCOHOL OPHT DROPS 15 ML BOTTLE LEFTEYE PRN ×2 (03:13→23:12)
[2020-09-02] MEDS: ACETAMINOPHEN 325 MG TABLET PO PRN ×2 (03:44→19:53)
--- NOTE | 2020-09-02 06:38 | NUR ---
GPS: Pt.slept for only 1 hr.last night. Restoril repeat dose was not asked by pt.til it was already after 3am. Pt.remains intrusive,hyperverbal,needy with flight of ideas. Re-directed and re-assured prn. Safe environment provided. Refuses Ativan PO for anxiety despite numerous attempts by staff.
[2020-09-02 07:30] VITALS: BP 137/87
[2020-09-02] MEDS: HALOPERIDOL LACTATE 10 MG/5 ML ORAL SOLUTION UDC PO SCH ×4 (08:52→16:31)
--- NOTE | 2020-09-02 10:17 | NUR ---
UR NOTE: Auth#[id number] SW received a call from Assigned wind energy project manager is Kae ([phone]) who stated pt is authorized and clinical review due on 09/04.
--- NOTE | 2020-09-02 10:29 | NUR ---
SW Family Contact: This SW contacted pt's mother Carolina ([phone]) and left a detailed voicemail of pt's admission, treatment plan, and discharge plan.
--- NOTE | 2020-09-02 10:59 | NUR ---
LUISA PC Hearing: Patient had 5250 probable cause hearing today and it was upheld for grave disability.
--- NOTE | 2020-09-02 12:34 | NUR ---
SW Family Contact: This SW spoke with Carolina ([phone]) and discussed treatment plan and discharge plan. Mother lives in [place] and stated that she wants to come down to help her daughter. She stated that pt is allergic to Haldol. This SW informed Dr. Fisher and Paige WRIGHT.
[2020-09-02 15:18] VITALS: BP 135/81
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
[2020-09-02] MEDS: LORAZEPAM 1 MG TABLET PO PRN ×2 (15:53→15:56)
[2020-09-02] MEDS ORDERED: LORAZEPAM 2 MG/1 ML VIAL IV ONE (17:45)
[2020-09-02] MEDS ORDERED: chlorproMAZINE 50 MG/2 ML AMPUL IM ONE ×2 (17:45→18:00)
[2020-09-02] MEDS ORDERED: LORAZEPAM 2 MG/1 ML VIAL IV PRN ×2 (17:45→18:15)
--- NOTE | 2020-09-02 18:22 | NUR ---
Patient seen to be severe agitated, hyperverbal, overly disruptive, constant shouting Patient was redirected, unable to follow directions, argumentative, no compliant with PO medications, restless behavior, slumming the door, poor anger management. MD Fisher notified, ordered thorazine 50mg one time PRN and ativan 2mg PRN one time given with 3 staff and 1 security. will continue monitor
--- NOTE | 2020-09-02 18:53 | NUR ---
After 10 minutes of giving PRN medicines, patient continue to be combative, slumming room door couple of times. verbally abusive to staff despite of redirection.
[2020-09-02 20:10] VITALS: BP 129/74
[2020-09-02] MEDS: TEMAZEPAM 15 MG CAPSULE PO PRN (23:11)
[2020-09-03 07:30] VITALS: BP 106/62
[2020-09-03] MEDS: chlorproMAZINE 25 MG TABLET PO SCH ×3 (09:00→17:00)
[2020-09-03] MEDS: DIVALPROEX 250 MG TABLET.DR PO SCH ×3 (09:00→17:00)
--- NOTE | 2020-09-03 10:17 | NUR ---
SW Family Contact: This SW received a phone call from pt's mother Carolina ([phone]) and stated pt is allergic to Thorazine and this SW notified Dr. Fisher. Mother stated she is DPOA and this SW stated for mother to fax documents.
[2020-09-03] MEDS: POLYVINYL ALCOHOL OPHT DROPS 15 ML BOTTLE LEFTEYE PRN ×3 (11:41→23:22)
--- NOTE | 2020-09-03 14:00 | NUR ---
PATIENT HAS REFUSED ALL OF HER MEDICATIONS TODAY DESPITE ENCOURAGEMENTS AND EXPLAINATIONS WALKING UP AND DOWN BACK AND FORTH HYPERVOCAL ALERT AND AWARE WILL CONTINUE TO OBSERVE AND PROVIDE HER WITH SAFE AND THERAPEUTIC ENVIRONMENT AT ALL TIMES.
--- NOTE | 2020-09-03 15:02 | NUR ---
SW Family Contact: This SW received a phone call from pt's mother Carolina ([phone]) and stated that pt needs to be on Restoril 30mgs and melatonin. This SW advised Dr. Fisher and charge nurse. Pt's mother appears to be not understanding of pt's condition and requesting for her not to take any antipsychotic medications. This SW educated mother on pts condition and mental status multiple times. Mother stated pt is stating that she is not feeling well and is vomiting. Pt is giving false information to her mother.
[2020-09-03 16:00] VITALS: BP 129/71
[2020-09-03] MEDS: ACETAMINOPHEN 325 MG TABLET PO PRN (16:08)
--- NOTE | 2020-09-03 18:55 | NUR ---
SHE REMAINS ALERT AND CONTINUES TO REFUSE ALL HER MEDICATIONS EXCEPT EYE DROPS AND TYLENOL AT 1608 STATED HAS HEADACHE AND WAS EFFECTIVE WILL CONTINUE TO PROVIDE SAFE AND THERAPEUTIC ENVIRONMENT AND ENCOURAGE PATIENT TO BE COMPLIANT.
[2020-09-03 20:15] VITALS: BP 117/75
[2020-09-03] MEDS: ATORVASTATIN 10 MG TABLET PO SCH (20:48)
[2020-09-03] MEDS: TEMAZEPAM 15 MG CAPSULE PO PRN (21:56)
--- NOTE | 2020-09-03 21:56 | NUR ---
PATIENT REQUESTED FOR A SLEEPING MEDICATION RESTORIL GIVEN ORDERED.
--- NOTE | 2020-09-03 23:30 | NUR ---
DR HAAS HERE TO SEE PATIENT WITH NO NEW ORDERS AT THIS TIME.
[2020-09-04] MEDS: POLYVINYL ALCOHOL OPHT DROPS 15 ML BOTTLE LEFTEYE PRN ×3 (06:12→18:31)
--- NOTE | 2020-09-04 06:45 | NUR ---
AWAKE WALKING IN THE HALLWAY REMAIN HYPERVOCAL STATED THAT SHE WANTS TO TALK TO THE DOCTOR THAT ORDERED THE XANAX FOR HER BECAUSE SHE DOES NOT LIKE ATIVAN SO I TOLD HER TO TALK TO DR HAAS TODAY AND SHE EXPRESSED UNDERSTANDING.
[2020-09-04 07:30] VITALS: BP 128/63
[2020-09-04 07:54] LABS: HEMATOCRIT 35.1 % (31.2-41.9); MEAN CORPUSCULAR HEMOGLOBIN 33.1 uug (24.7-32.8); MEAN CORPUSCULAR VOLUME 98.1 fL (75.5-95.3); PLATELET COUNT (AUTO) 359 K/uL (179-408)
[2020-09-04 08:07] LABS: BILIRUBIN,TOTAL 0.2 mg/dL (0.2-1.0); CREATININE 0.8 mg/dL (0.6-1.3); MAGNESIUM 2.3 mg/dL (1.8-2.4); PHOSPHOROUS 3.3 mg/dL (2.5-4.9); TOTAL PROTEIN, SERUM 8.1 g/dL (6.4-8.2)
[2020-09-04 08:11] LABS: THYROID STIMULATING HORMONE 5.122 mIU/mL (0.358-3.740)
[2020-09-04] MEDS: chlorproMAZINE 25 MG TABLET PO SCH ×4 (09:00→20:48)
[2020-09-04] MEDS: DIVALPROEX 250 MG TABLET.DR PO SCH (09:00)
--- NOTE | 2020-09-04 10:21 | NUR ---
UR NOTE: Auth#[id number] SW contacted Assigned microbiology laboratory manager is Kae ([phone]. [phone]) and left a detailed voicemail for clinical review.
[2020-09-04] MEDS: ACETAMINOPHEN 325 MG TABLET PO PRN ×2 (11:09→20:56)
--- NOTE | 2020-09-04 11:14 | NUR ---
LUISA Coordination of Care: Patient will follow up with (Sales Support Representative) Dr. Simms located at [address] [place] [address], [facility] ([phone]) on at 1:40PM. Primary doctor will refer patient to a psychiatrist. Scheduled by Lis gatestionist.
--- NOTE | 2020-09-04 11:52 | NUR ---
Pt filed for Writ hearing and medication capacity appeal today. Paperwork was filled out and faxed to court ([phone]). The procedure was explained to the patient. A copy was provided to the patient. Pt verbalizes understanding.
--- NOTE | 2020-09-04 12:05 | NUR ---
LUISA Individual Therapy: ash worker met with patient for brief counseling to help address patients presenting problem disorganized thought content. Patient appears hyperverbal and tangential. Patient unable to have a proper conversation and is fixated on her medications. SW unable to conduct therapy at this time.
[2020-09-04] MEDS: VALPROIC ACID 250 MG CAPSULE PO SCH ×2 (13:00→17:00)
[2020-09-04] MEDS: chlorproMAZINE 50 MG/2 ML AMPUL IM SCH ×2 (13:21→17:42)
[2020-09-04 16:47] VITALS: BP 118/77
[2020-09-04 20:00] VITALS: BP 123/77
[2020-09-04] MEDS: ATORVASTATIN 10 MG TABLET PO SCH (20:49)
[2020-09-04] MEDS: chlorproMAZINE 50 MG/2 ML AMPUL IM PRN (20:56)
[2020-09-04] MEDS: TEMAZEPAM 15 MG CAPSULE PO PRN (21:47)
--- NOTE | 2020-09-05 06:23 | NUR ---
GPS: REMAIN HYPERVERBAL AND NEEDY TO STAFF. OCC PACING IN THE UNIT AND TALKING LOUD TO SELF. TOOK SHOWER. SLEPT 6.45 HRS THROUGH THE NIGHT AFTER SLEEPING MEDS GIVEN. RESTING IN BED COMFORTABLY.
[2020-09-05] MEDS: POLYVINYL ALCOHOL OPHT DROPS 15 ML BOTTLE LEFTEYE PRN ×5 (06:33→23:21)
[2020-09-05 07:30] VITALS: BP 102/61
[2020-09-05] MEDS: VALPROIC ACID 250 MG CAPSULE PO SCH ×3 (09:00→16:39)
[2020-09-05] MEDS: chlorproMAZINE 50 MG/2 ML AMPUL IM PRN ×3 (09:24→16:55)
--- NOTE | 2020-09-05 11:20 | NUR ---
UR NOTE: Auth#[id number] SW contacted Assigned logistic manager is Kae ([phone]. [phone]) and left a detailed voicemail for clinical review again. Kae's voicemail stated she will be back 09/09 and a leather case finisher will reach out as she assigned her pt's to other case workers.
[2020-09-05] MEDS: chlorproMAZINE 25 MG TABLET PO SCH ×2 (13:00→17:00)
--- NOTE | 2020-09-05 13:54 | NUR ---
Gps/Car Repairer Pullman- Refusing to take routine meds. claimed its not the right medications, all she needs is xanax per patient. Informed and reviewed with patient she's Carl, claimed it does not mater she want staff to call her own PMD.
[2020-09-05] MEDS: ACETAMINOPHEN 325 MG TABLET PO PRN (13:58)
--- NOTE | 2020-09-05 14:06 | NUR ---
UR NOTE: Auth#[id number] SW received a phone call from Lily who is cover Assigned manager process improvement is Kae ([phone]. [phone]) and stated pt is authorized until 09/09/20 and will require clinicals due on 09/09.
--- NOTE | 2020-09-05 15:45 | NUR ---
Gps/House Superintendent- Attended her group therapy, showing her arts, calmer mood, claimed relieved of her headache. Making her needs known to staff.
[2020-09-05 16:00] VITALS: BP 110/59
[2020-09-05 20:06] VITALS: BP 97/67
[2020-09-05] MEDS: ATORVASTATIN 10 MG TABLET PO SCH (20:29)
[2020-09-05] MEDS: TEMAZEPAM 15 MG CAPSULE PO PRN (23:20)
[2020-09-06] MEDS: MAGNESIUM HYDROXIDE 30 ML LIQUID UDC PO PRN ×2 (04:44→18:26)
--- NOTE | 2020-09-06 04:50 | NUR ---
patient c/o constipation. mom 30 ml po prn given.
--- NOTE | 2020-09-06 05:49 | NUR ---
GPS: REMAIN HYPERVERBAL AND NEEDY TO STAFF. OCC PACING IN THE UNIT AND TALKING LOUD TO SELF. PATIENT SLEPT 6.15 HRS THROUGH THE NIGHT AFTER SLEEPING MEDS GIVEN. RESTING IN BED COMFORTABLY.
[2020-09-06 07:56] VITALS: BP 112/69
[2020-09-06] MEDS: VALPROIC ACID 250 MG CAPSULE PO SCH ×3 (09:00→16:37)
[2020-09-06] MEDS: chlorproMAZINE 25 MG TABLET PO SCH ×3 (09:00→16:37)
[2020-09-06] MEDS: chlorproMAZINE 50 MG/2 ML AMPUL IM PRN ×2 (09:11→12:47)
[2020-09-06] MEDS: POLYVINYL ALCOHOL OPHT DROPS 15 ML BOTTLE LEFTEYE PRN ×2 (10:21→12:59)
[2020-09-06] MEDS: ACETAMINOPHEN 325 MG TABLET PO PRN ×2 (12:59→18:55)
--- NOTE | 2020-09-06 14:53 | NUR ---
Gps/Nuclear Unit Operator- Attends and participate in her group therapy. Remains to refused routine po. meds. prwfwrred to take IM.meds r/t to unable to swallow pils per patient.Noted patient able to swallow tylenol as needed. Yelling out loud , almosy hysterical during IM admnistration
[2020-09-06 15:57] VITALS: BP 104/62
[2020-09-06 20:05] VITALS: BP 112/64
[2020-09-06] MEDS: ATORVASTATIN 10 MG TABLET PO SCH (20:28)
[2020-09-06] MEDS: TEMAZEPAM 15 MG CAPSULE PO PRN (22:24)
[2020-09-07] MEDS: ACETAMINOPHEN 325 MG TABLET PO PRN ×3 (06:21→18:10)
[2020-09-07 08:00] VITALS: BP 102/60
[2020-09-07] MEDS: VALPROIC ACID 250 MG CAPSULE PO SCH ×3 (08:34→16:52)
[2020-09-07] MEDS: chlorproMAZINE 25 MG TABLET PO SCH ×3 (08:34→16:52)
[2020-09-07] MEDS: chlorproMAZINE 50 MG/2 ML AMPUL IM PRN ×3 (09:03→17:41)
[2020-09-07] MEDS: POLYVINYL ALCOHOL OPHT DROPS 15 ML BOTTLE LEFTEYE PRN ×3 (09:09→18:11)
[2020-09-07 16:05] VITALS: BP 108/60
[2020-09-07 20:00] VITALS: BP 105/51
[2020-09-07] MEDS: ATORVASTATIN 10 MG TABLET PO SCH (20:24)
[2020-09-07] MEDS: TEMAZEPAM 15 MG CAPSULE PO PRN (21:43)
[2020-09-08] MEDS: ACETAMINOPHEN 325 MG TABLET PO PRN ×3 (01:12→22:22)
[2020-09-08] MEDS: POLYVINYL ALCOHOL OPHT DROPS 15 ML BOTTLE LEFTEYE PRN ×2 (06:34→22:22)
--- NOTE | 2020-09-08 06:47 | NUR ---
Patient slept 5.00 last night. Less hyperverbal, still refusing po medications and at the nurses station, frequently throughout the shift, with multiple requests. No acute behavioral issues noted at this time.
[2020-09-08 07:30] VITALS: BP 109/60
[2020-09-08] MEDS: chlorproMAZINE 25 MG TABLET PO SCH ×3 (09:00→17:00)
[2020-09-08] MEDS: VALPROIC ACID 250 MG CAPSULE PO SCH ×3 (09:00→17:00)
[2020-09-08] MEDS: chlorproMAZINE 50 MG/2 ML AMPUL IM PRN ×3 (09:58→17:53)
--- NOTE | 2020-09-08 13:20 | NUR ---
GPS: Nursing Notes: Thorazine IM : Thorazine IM not given as per Pat, patient was sleeping and hard to arouse at this time, R=18, continue to monitor for safety, continue with treatment plan.
[2020-09-08 15:11] VITALS: BP 127/67
[2020-09-08 20:09] VITALS: BP 121/65
[2020-09-08] MEDS: ATORVASTATIN 10 MG TABLET PO SCH (21:00)
[2020-09-08] MEDS: TEMAZEPAM 15 MG CAPSULE PO PRN (22:21)
[2020-09-09 07:30] VITALS: BP 112/63
--- NOTE | 2020-09-09 08:33 | NUR ---
Transportation: This SW spoke with Ashlee ([phone]) who arranged transportation for pt through [employer] and Say will contact this SW to confirm.
--- NOTE | 2020-09-09 08:35 | NUR ---
LUISA Family Contact: LUISA spoke with patients cousin Natalie ([phone]) and stated pt will be discharged tomorrow. This SW notified pt's mother Carolina.
[2020-09-09] MEDS: VALPROIC ACID 250 MG CAPSULE PO SCH ×3 (08:46→16:43)
[2020-09-09] MEDS: chlorproMAZINE 25 MG TABLET PO SCH ×3 (08:47→16:43)
[2020-09-09] MEDS: ACETAMINOPHEN 325 MG TABLET PO PRN ×2 (11:19→17:28)
--- NOTE | 2020-09-09 14:47 | NUR ---
UR NOTE: Auth#[id number] SW received a phone call from Lily who is cover Assigned program development manager is Kae ([phone]. [phone]) left a detailed voicemail of patient's clinicals.
[2020-09-09 15:07] VITALS: BP 103/60
[2020-09-09] MEDS: TEMAZEPAM 15 MG CAPSULE PO PRN (20:07)
[2020-09-09] MEDS: ATORVASTATIN 10 MG TABLET PO SCH (20:07)
[2020-09-09] MEDS: POLYVINYL ALCOHOL OPHT DROPS 15 ML BOTTLE LEFTEYE PRN (20:07)
[2020-09-09 20:11] VITALS: BP 119/70
[2020-09-10] MEDS: ACETAMINOPHEN 325 MG TABLET PO PRN ×2 (00:21→07:28)
[2020-09-10] MEDS: POLYVINYL ALCOHOL OPHT DROPS 15 ML BOTTLE LEFTEYE PRN ×2 (07:17→09:25)
[2020-09-10 07:30] VITALS: BP 129/73
--- NOTE | 2020-09-10 07:30 | NUR ---
NURSE REPORT Report given by night nurse Marciano and this nurse assume care of patient. Received patient awake and alert. Ambulatory. VSS. Afeb. No c/o pain or discomfort.
--- NOTE | 2020-09-10 07:45 | NUR ---
SW Discharge Note: Patient will be discharged home located at [address], [place] [address] ([phone]). This SW spoke with Ashlee ([phone]) from [facility] who scheduled transportation via [employer] ([phone]) at 11AM. Patients cousin Natalie ([phone]) and Mother Carolina ([phone]) are involved in patients care. Patient is alert and oriented x3 and is happy to be going back home. Patient denies any suicidal or homicidal ideation. Patient is aware and agreeable with discharge plans. Patient denies visual/auditory hallucination. Patient will follow up with (Stoker Installation Mechanic) Dr. Simms located at [address] [facility], [facility] ([phone]) on at 1:40PM. Primary doctor will refer patient to a psychiatrist. Patient was provided with mental health resources: [facility] ;([phone]), [facility]; ([phone]), [facility]; ([phone]), National Suicide Prevention Lifeline; ( ). Patient presented with euthymic mood and congruent affect.
--- NOTE | 2020-09-10 08:50 | NUR ---
NURSE NOTES Patient refused to take her meds.
[2020-09-10] MEDS: chlorproMAZINE 25 MG TABLET PO SCH ×2 (09:00→09:25)
[2020-09-10] MEDS: VALPROIC ACID 250 MG CAPSULE PO SCH ×2 (09:00→09:24)
--- NOTE | 2020-09-10 12:15 | NUR ---
DISCHARGE NOTES D/C to home via lyft driver and car. The patient was dc'd to front of hospital with DISK AND TAPE MACHINE TENDER and nurse. Refused oral psych meds. Don't qualified for IM inection. Stable condition.
--- NOTE | 2020-09-10 13:13 | NUR ---
Pt is being discharged home to her mother. Pt's aware and willing to go. Pt denies S.I. Pt is alert/oriented x3. No distress noted, vs are stable. Pt is being picked up by "[employer]" transportation company. Discharge instructions given including follow up appointments and instructions about prescription medications. Pt verbalizes understanding.
== END 2020-09-10 13:43 | disposition home or self-care (01) | DRG 885 ==
LOC: ER 17:21 → GPS 18:06
PROVIDERS: ADMIT Psychiatry & Neurology Psychiatry; ATTEND Internal Medicine
DX: F31.2 Bipolar disorder, current episode manic severe with psychotic features (principal); F23 Brief psychotic disorder; E78.5 Hyperlipidemia, unspecified; F41.9 Anxiety disorder, unspecified; Z88.0 Allergy status to penicillin; Z88.2 Allergy status to sulfonamides; Z73.6 Limitation of activities due to disability; M62.81 Muscle weakness (generalized); R26.81 Unsteadiness on feet
CPT/HCPCS: 36415; 83735; 84100; 84443; 85025; A4663; J2060; J3230; J3490; Q0161